=== PATIENT | female | born 1975 | race American Indian/Alaskan Native ===

== ENCOUNTER → 2024-09-04 | Outpatient (CLI) | payer MEDICAID, SELFPAY ==
--- NOTE | 2024-09-04 14:53 | XR_ITS ---
Examination: Wrist, right 3 views Technique: Wrist AP, oblique, lateral 3 views Date and time of exam: September 04, 2024 1530 hrs. Indications: Right wrist pain several months Findings: Moderate osteopenia No fracture or dislocation No erosive or other significant arthritic change Impression: No fracture No erosive or other significant arthritic change
--- NOTE | 2024-09-04 14:53 | XR_ITS ---
Examination: Hand, right 3 views Technique: Hand AP, oblique, lateral 3 views Date and time of exam: September 04, 2024 1530 hrs. Indications: Right hand pain beginning several months ago. Findings: Moderate osteopenia No fracture No erosive or other significant arthritic change No opaque foreign bodies Impression: No fracture No erosive or other significant arthritic change
== END | disposition home or self-care (01) ==
PROVIDERS: PCP Nurse Practitioner Family; Referring Provider Nurse Practitioner Family; Visit Provider Nurse Practitioner Family
DX: M79.641 Pain in right hand (principal); M79.89 Other specified soft tissue disorders; R20.2 Paresthesia of skin
CPT/HCPCS: 73110; 73130